=== PATIENT | male | born 1985 | race Caucasian/White ===

== ENCOUNTER 2019-06-17 04:24 | Observation (INO) ==
[2019-06-17] MEDS ORDERED: Ketorolac 30 MG/ML VIAL IVP PRN ×2 (08:21→16:54)
[2019-06-17] MEDS ORDERED: Naloxone 0.4 MG/ML INJ IVP PRN ×2 (08:21→16:54)
[2019-06-17] MEDS ORDERED: Ondansetron 4 MG/2 ML VIAL IVP PRN ×2 (08:24→16:54)
[2019-06-17] MEDS ORDERED: 0.9 % Sodium Chloride 1,000 ML IVC SCH ×2 (08:30→16:54)
--- NOTE | 2019-06-17 09:09 | Internal Med History&Physical ---
Date of Encounter: 06/17/19 Time of Encounter: 09:01 Internal Medicine - H&P: HPI History of present illness: Mr. Hernandez is a 33 year old male presents as a transfer from [facility] [place] for nephrolithiasis and hydronephrosis. He has history of kidney stones, hypertension pre-diabetes on metformin, and tobacco abuse. Patient presented for right flank pain. At [facility] [place], WBC was 11.5k, BMP was relatively unremarkable creatinine was 1.19 which is within normal limts per their lab and GRF >60. Urinalysis showed trace protein and large blood. CT abdomen/pelvis without contrast showed 7 mm right UPJ calculus causing moderate to marked hydronphrosis. He complained of testicular pain and urinary retention, also with nausea. He was given Keflex and normal saline. Past Med Surg Social Fam HX - Past Medical History Medical history: hypertension, kidney stones Additional medical history: pre-diabetic Psychiatric history: no psych history - Past Surgical History Surgical History: no surgical history - Social History Smoking Status: Current every day smoker Packs per day: 1 Smokeless Tobacco Status: No Alcohol use: occasionally Drug use: none - Family History Father Hx Family Cardiac Disorders: Yes (HTN, SC) Hx Family Endocrine Disorder: Yes (DM) Internal Medicine - H&P: Meds 3 Allergy/AdvReac Type Severity Reaction Status Date / Time No Known Allergies Allergy Verified 06/17/19 06:33 All Systems PM: A 10-system review of systems was performed and is negative for pertinent findings except as documented above in the HPI. - Constitutional Constitutional: no chills, no fever(s), no night sweats - EENT Eyes: no change in vision, no discharge, no pain, no photophobia Ears: no ear discharge, no ear pain, no tinnitus Nose, mouth and throat: no dysphagia, no nasal discharge, no neck pain, no sore throat - Cardiovascular Cardiovascular ROS IM: no chest pain, no diaphoresis, no dyspnea, no lightheadedness, no palpitations, no syncope - Respiratory Respiratory: no cough, no dyspnea, no wheezing, no excessive phlegm production - Gastrointestinal Gastrointestinal: nausea, no abdominal pain, no diarrhea, no hematemesis, no hematochezia, no melena, no vomiting - Genitourinary Genitourinary ROS male: flank pain, no genital pain, no scrotal swelling, no testicular mass Additional comments: inguinal radiating to testicle, no longer present. - Musculoskeletal Musculoskeletal ROS IM: no numbness, no tingling - Integumentary Integumentary IM: no rash, no unusual bruising - Neurological Neurological ROS: no confusion, no convulsions, no focal weakness, no numbness, no tingling, no tremor(s) - Hematologic/Lymphatic Hematologic/Lymphatic: no easy bruising - Constitutional Vitals: Temp Pulse Resp BP Pulse Ox 97.8 F 75 16 136/79 97 06/17/19 06:58 06/17/19 06:58 06/17/19 06:58 06/17/19 06:58 06/17/19 06:58 General appearance: Present: A&O X 3 Exam: . - Head Head exam: Present: atraumatic, normocephalic - Eye Eye exam: Present: PERRL, conjuntiva pink, sclera anicteric Pupils: Present: PERRL - Neck Neck exam general surgery: Present: supple, trachea midline. Absent: lymphadenopathy - Respiratory Respiratory exam: Present: CTAB. Absent: accessory muscle use, rales, rhonchi, wheezes - Cardiovascular Cardiovascular exam: Present: RRR, +S1, +S2. Absent: diastolic murmur, gallop, rubs, systolic murmur - GI/Abdominal GI/Abdominal exam: Present: normal bowel sounds, soft, no peritoneal signs. Absent: distended, tenderness - exam: Present: circumcision, normal inspection. Absent: scrotal swelling, testicular tenderness External exam: Absent: ecchymosis, erythema, lesions - Extremities Exam Extremities exam: Present: warm, radial pulses palpable and symmetrical. Absent: calf tenderness, cyanotic, pedal edema - Neurological Exam Neurological exam: Present: CN II-XII intact, oriented X3, no focal deficits. Absent: pronater drift, facial droop, speech deficit - Skin Skin exam: Present: dry, intact - Assessment and Plan (1) Right kidney stone Current Visit: Yes Status: Acute Assessment and plan: 7 mm UPJ stone causing moderate to marked hydronephrosis. Patient currently in no acute distress. No signs of kidney injury. - Urology consulted, recommendations appreciated - NPO - IV fluids - Oxycodone, Zofran, Toradol prn pain and nausea. (2) Hydronephrosis Current Visit: Yes Status: Acute Assessment and plan: plan as above. Qualifiers: Hydronephrosis type: with renal calculous obstruction Qualified Code(s): N13.2 - Hydronephrosis with renal and ureteral calculous obstruction (3) Hypertension Current Visit: Yes Status: Acute Assessment and plan: Resume home medications once med rec complete, Hydralazine IV prn. Qualifiers: Hypertension type: essential hypertension Qualified Code(s): I10 - Essential (primary) hypertension (4) Pre-diabetes Current Visit: Yes Status: Acute Assessment and plan: Hold metformin, ISS as needed (5) Tobacco abuse Current Visit: Yes Status: Acute Assessment and plan: Nicotine patch if needed (6) DVT prophylaxis Current Visit: Yes Status: Acute Assessment and plan: heparin SQ - Time Spent With Patient Total time spent is greater than 50% in coordination of care (as documented) at patient's floor/unit and/or counseling patient:
[2019-06-17] MEDS ORDERED: Nicotine 14 MG PATCH.TD24 TD PRN ×2 (09:25→16:54)
[2019-06-17 11:38] LABS: Basophils % 0.4 %; Eosinophils # 0.2 K/mcL (0.0-0.6); Eosinophils % 2.6 %; Hematocrit 39.1 % (37.5-50.1); Hemoglobin 12.6 g/dL (12.9-16.9); Immature Granulocytes % 0.2 % (0-4); Lymphocytes % 22.3 %; Mean Corpuscular HGB Conc 32.2 g/dL (31.6-35.5); Mean Corpuscular Hemoglobin 28.8 pg (28.0-33.3); Mean Corpuscular Volume 89.5 fL (83.0-100.0); Mean Platelet Volume 10.5 fL (9.4-12.4); Monocytes # 0.8 K/mcL (0.0-1.3); Monocytes % 8.6 %; Neutrophils # 5.9 K/mcL (1.6-8.9); Platelet Count 219 K/mcL (140-400); Red Blood Count 4.37 M/mcL (4.19-5.50); Red Cell Distribution Width 13.4 % (11.5-14.5); Segmented Neutrophils % 65.9 %
[2019-06-17 11:51] LABS: Prothrombin Time 11.9 Seconds (9.4-12.1)
[2019-06-17 11:56] LABS: BUN/Creatinine Ratio 22 (6-26); Blood Urea Nitrogen 18 mg/dL (6-20); Calcium 9.3 mg/dL (8.6-10.3); Carbon Dioxide 25 mEq/L (23-29); Chloride 107 mEq/L (98-107); Glucose 90 mg/dL (70-105); Osmolality,Calculated 293 (280-300); Potassium 4.5 mEq/L (3.5-5.1); Sodium 141 mEq/L (136-145); eGFR For African Americans > 60 (> 60); eGFR For Non-African Americans > 60 (> 60)
--- NOTE | 2019-06-17 14:06 | Anesthesia Evaluation PreOp ---
Date of Encounter: 06/17/19 Time of Encounter: 14:04 - Past History Planned Operation: Retrograde Pyelopgram w/Stent Cardiac History: HTN Pulmonary History: Smoker (1ppd x 15yrs), Asthma Other Medical History: Renal (admitted with Nephrolithiasis/Nephrosis from OSH 06/17/2019), Diabetes Type II (Pre-DM on Metformin) Anesthesia History: Past Anesthesia (NO prior GA), MH (NO FamHx of ) Alcohol Use: occasionally Drug use: none Medications and Allergies Meloxicam [Mobic] 7.5 mg PO BID 06/17/19 [History] Metformin HCl [Fortamet] 500 mg PO DAILY 06/17/19 [History] amLODIPine [Norvasc] 10 mg PO DAILY 06/17/19 [History] Allergy/AdvReac Type Severity Reaction Status Date / Time No Known Allergies Allergy Verified 06/17/19 06:33 - Meds/Allergy Pre-op Review Medications Reviewed: Yes Allergies Reviewed: Yes Beta Blockers on Current Med List: No Anesthesia Results - Labs 06/17/19 11:10 06/17/19 11:10 Laboratory Tests 06/17/19 06/17/19 11:10 11:10 INR 1.0 Est GFR (Non-Af Amer) > 60 n - Imaging Additional studies: Nuclear Stress 07/2018 Impression: Perfusion imaging was negative for ischemia or infarct. Exercise ECG is negative for ischemia. Patient described 4-5/10 chest pain at peak stress. The patient demonstrated a hypertensive blood pressure response. Gated EF = 66%. Anesthesia Exam Vital Signs Temp Pulse Resp BP Pulse Ox 06/17/19 11:17 98.0 F 70 16 143/76 97 06/17/19 06:58 97.8 F 75 16 136/79 97 Intake and Output 06/16/19 06/17/19 06/17/19 23:59 07:59 15:59 Other: Weight 112.8 kg Blood Glucose* 103 82 Patient Weight 06/17/19 23:59 Weight 112.8 kg Height: 5'11" Weight: 248# BMI = 35 NPO (# of Hours): MNOc - HEENT Pupil (Motor): Pupils equal, EOMI Mallampati: III Teeth: Normal Oral Opening: Greater than 3 - ELECTRONIC COMPONENT PROCESSOR LOC: Oriented ELECTRONIC COMPONENT PROCESSOR Motor: Normal RUE, Normal LUE, Normal RLE, Normal LLE, Normal Face ELECTRONIC COMPONENT PROCESSOR Sensory: Normal: RUE, LUE, RLE, LLE, Face - Cardiac Rhythm: Regular Murmur: None - Pulmonary Breath Sounds: bilateral Clear Respiratory Effort: Symmetrical Anesthesia Assess/Plan ASA Score: 3 (Obesity, DM, Smoker) Level of consciousness: Cooperative, Oriented, Tranquil Anesthetic Plan: General Monitoring Plan: Standard Monitors Recovery Plan: PACU Anes Supervising Prov Stmt: Pt seen/evaluated, R&B Discussed questions answered and consent obtained. Christian Murillo MD
[2019-06-17] MEDS ORDERED: Lidocaine -MPF 2% 2 ML VIAL ONE (14:21)
[2019-06-17] MEDS ORDERED: *HR* Propofol 200 MG/20 ML VIAL IVP ONE (14:21)
[2019-06-17] MEDS ORDERED: Isovue-300 50 ML VIAL ONE (14:55)
[2019-06-17] MEDS ORDERED: Acetaminophen IV 1,000 MG/100 ML INFUS..BTL ONE (15:16)
[2019-06-17] MEDS ORDERED: Famotidine 20 MG/2 ML VIAL ONE (15:16)
--- NOTE | 2019-06-17 15:18 | Urology - Consult Note ---
Date of Encounter: 06/17/19 Time of Encounter: 15:16 - Assessment and Plan (1) Hydronephrosis Current Visit: Yes Status: Acute Assessment and plan: Transferred due to poorly controlled pain from 7 mm obstructing right ureteropelvic junction calculus. Patient's pain has been intermittent. He does not have evidence of urinary tract infection. Is not septic. Discussed option for management. Plan: Urgent urinary diversion by stent placement today. Patient okay for discharge to home post placement of stent. My office will arrange outpatient follow-up for definitive management of stone. Hospitalist acceptance and management of this patient is greatly appreciated. Qualifiers: Hydronephrosis type: unspecified Qualified Code(s): N13.30 - Unspecified hydronephrosis (2) Right ureteral calculus Current Visit: Yes Status: Acute Assessment and plan: 7 mm right proximal ureteral calculus. Discussed options for definitive management of stone. Plan: My office will arrange for staged outpatient address of calculus via [facility]. (3) Nephrolithiasis Current Visit: Yes Status: Acute Assessment and plan: Patient with history of prior stones. Given recurrent stone disease prev entative evaluation is indicated. Plan: My office will arrange for outpatient follow-up for metabolic evaluation and stone prevention. Urology CN:HPI Consult date: 06/17/19 Reason for consult Urology: Hydronephrosis Requesting physician: Aisha Bettencourt History of present illness: Mr. Hernandez is a 33 year old male presents as a transfer from [place] for nephrolithiasis and hydronephrosis. He has history of kidney stones, hypertension pre-diabetes on metformin, and tobacco abuse. Patient presented for right flank pain. At [facility] [place], WBC was 11.5k, BMP was relatively unremarkable creatinine was 1.19 which is within normal limts per their lab and GRF >60. Urinalysis showed trace protein and large blood. CT abdomen/pelvis without contrast showed 7 mm right UPJ calculus causing moderate to marked hydronphrosis. He complained of testicular pain and urinary retention, also with nausea. He was given Keflex and normal saline. Patient reports prior history of spontaneous stone passages without prior urologic interventions. Past Med Surg Social Fam HX - Past Medical History Medical history: hypertension, kidney stones Additional medical history: pre-diabetic Psychiatric history: no psych history - Past Surgical History Surgical History: no surgical history - Social History Smoking Status: Current every day smoker Packs per day: 1 Smokeless Tobacco Status: No Alcohol use: occasionally Drug use: none - Family History Father Hx Family Cardiac Disorders: Yes (HTN, PR) Hx Family Endocrine Disorder: Yes (DM) Medications and Allergies Meloxicam [Mobic] 7.5 mg PO BID 06/17/19 [History] Metformin HCl [Fortamet] 500 mg PO DAILY 06/17/19 [History] amLODIPine [Norvasc] 10 mg PO DAILY 06/17/19 [History] Allergy/AdvReac Type Severity Reaction Status Date / Time No Known Allergies Allergy Verified 06/17/19 06:33 Review of Systems - Constitutional no chills, no fever(s) - EENT Nose, mouth and throat: no dizziness, no headache(s) - Cardiovascular no chest pain, no diaphoresis - Respiratory no cough, no dyspnea - Gastrointestinal abdominal pain, no fecal incontinence - Genitourinary flank pain, no dysuria - Musculoskeletal back pain, no muscle weakness - Integumentary no erythema, no rash - Neurological no confusion, no sensory deficit - Psychiatric no anxiety, no confusion - Hematologic/Lymphatic no easy bleeding, no easy bruising - Allergic/Immunologic no throat swelling, no wheezing Exam Initial Vital Signs Temp Pulse Resp BP Pulse Ox 97.8 F 75 16 136/79 97 06/17/19 06:58 06/17/19 06:58 06/17/19 06:58 06/17/19 06:58 06/17/19 06:58 - General physical appearance Present: well nourished, no distress - Eyes Present: normal ocular movement. Absent: icteric - ENT Present: normal nares, normal mucosa - Neck Present: trachea midline - Respiratory Present: normal respiratory effort - Abdomen Abdomen: Present: soft, non tender - Integumentary Present: no rash, no growths - Neurologic Present: normal coordination. Absent: disoriented, confused - Musculoskeletal Present: normal gait Urology Results - Labs 06/17/19 11:10 06/17/19 11:10 Abnormal lab results Hgb 12.6 g/dL (12.9-16.9) L 06/17/19 11:10 Diabetes panel 06/17/19 Range/Units 11:10 Sodium 141 (136-145) mEq/L Potassium 4.5 (3.5-5.1) mEq/L Chloride 107 (98-107) mEq/L Carbon Dioxide 25 (23-29) mEq/L BUN 18 (6-20) mg/dL Creatinine 0.83 (0.70-1.30) mg/dL Glucose 90 (70-105) mg/dL Calcium 9.3 (8.6-10.3) mg/dL Calcium panel 06/17/19 Range/Units 11:10 Calcium 9.3 (8.6-10.3) mg/dL Pituitary panel 06/17/19 Range/Units 11:10 Sodium 141 (136-145) mEq/L Potassium 4.5 (3.5-5.1) mEq/L Chloride 107 (98-107) mEq/L Carbon Dioxide 25 (23-29) mEq/L BUN 18 (6-20) mg/dL Creatinine 0.83 (0.70-1.30) mg/dL Glucose 90 (70-105) mg/dL Calcium 9.3 (8.6-10.3) mg/dL Adrenal panel 06/17/19 Range/Units 11:10 Sodium 141 (136-145) mEq/L Potassium 4.5 (3.5-5.1) mEq/L Chloride 107 (98-107) mEq/L Carbon Dioxide 25 (23-29) mEq/L BUN 18 (6-20) mg/dL Creatinine 0.83 (0.70-1.30) mg/dL Glucose 90 (70-105) mg/dL Calcium 9.3 (8.6-10.3) mg/dL All other labs normal. - Imaging CT scan - abdomen: image reviewed CT scan - pelvis: image reviewed (Outside CT images reviewed via disc. 7 mm obstructing right UPJ stone with hydronephrosis.) Consult Discharge Plan - Plan Referrals: Chelsie Nunez, SAFETY GROOVING MACHINE OPERATOR [Primary Care Provider] -
[2019-06-17] MEDS ORDERED: *HR* Midazolam HCl 2 MG/2 ML VIAL ONE (15:21)
[2019-06-17] MEDS ORDERED: *HR* FentaNYL (PF) 100 MCG/2 ML VIAL ONE (15:21)
[2019-06-17] MEDS ORDERED: *HR* HYDROMORPHONE 2 MG/ML VIAL ONE (15:52)
[2019-06-17] MEDS ORDERED: *HR* Magnesium Sulfate 1 GM/2 ML VIAL ONE (15:52)
--- NOTE | 2019-06-17 16:06 | Operative Note ---
Date of procedure: 06/17/19 Pre-op diagnosis: Right hydronephrosis Post-op diagnosis: same Procedure: Cystoscopy, right retrograde ureteral pyelography with intraoperative interpretation of radiographic images in real time by surgeon to facilitate procedure, right double-J stent placement Implants: 6 x 28 right double-J stent Complications: None Anesthesia: GETA Surgeon: Ronal Mitchell Was there an health education assistant present: No Estimated blood loss (cc): 2 Specimen: None Condition: stable Disposition: PACU Procedure in Detail: The patient was brought to the operating theater placed on the table in supine position. The patient identified by name, date of and administered a general anesthetic. The patient was repositioned in dorsal lithotomy then prepped and draped in the normal sterile fashion. The cystoscope could not fit into the urethral meatus due to moderate but not obstructive narrowing/stenosis. This required manual dilation of the urethral meatus with insertion of hemostats. Once the meatus had been dilated the scope was accepted. On cystourethroscopy no mucosal abnormalities were identified. An open-ended catheter was placed the tip of the right ureteral orifice and with gentle injection of contrast a right retrograde ureteropyelogram was performed. Intraoperative interpretation of radiographic images in real time by surgeon to facilitate procedure revealed normal distal and mid ureter. In the proximal ureter was a second size filling defect with hydronephrosis above this level consistent with stone seen on previous CT. Based on this intraoperative interpretation, urinary diversion by stent placement was indicated. A Glidewire was advanced into the ureter above the stone and into the upper pole collecting system. Over the Glidewire a 6 x 28 double-J stent was advanced. Once the stent was felt in good position the Glidewire was removed. The stent was confirmed in good position approximately distally with fluoroscopy. This ended the operative procedure.
[2019-06-17] MEDS ORDERED: Dexamethasone 4 MG/ML VIAL ONE (16:19)
[2019-06-17] MEDS ORDERED: Ondansetron 4 MG/2 ML VIAL ONE (16:19)
[2019-06-17] MEDS ORDERED: Ringers Solution, Lactated 1,000 ML ONE (16:27)
[2019-06-17 17:15] VITALS: BP 142/90
--- NOTE | 2019-06-17 17:40 | Discharge Summary ---
- NOTES TO OUTPATIENT PROVIDER Notes to Outpatient Provider: To be followed-up with Urology post-stent placement. Date of Encounter: 06/17/19 Time of Encounter: 17:37 - Discharge Diagnosis (1) Right kidney stone Priority: Primary Status: Acute (2) Hydronephrosis Priority: Secondary Status: Acute Qualifiers: Hydronephrosis type: unspecified Qualified Code(s): N13.30 - Unspecified hydronephrosis (3) Hypertension Priority: Secondary Status: Acute Qualifiers: Hypertension type: essential hypertension Qualified Code(s): I10 - Essential (primary) hypertension (4) Pre-diabetes Priority: Secondary Status: Acute (5) Tobacco abuse Priority: Secondary Status: Acute (6) DVT prophylaxis Priority: Secondary Status: Acute Hospital course: Mr. Hernandez is a 33 year old male presents as a transfer from [facility] ED for nephrolithiasis and hydronephrosis. He has history of kidney stones, hypertension pre-diabetes on metformin, and tobacco abuse. Patient presented for right flank pain. At [facility] [place], WBC was 11.5k, BMP was relatively unremarkable creatinine was 1.19 which is within normal limts per their lab and GRF >60. Urinalysis showed trace protein and large blood. CT abdomen/pelvis without contrast showed 7 mm right UPJ calculus causing moderate to marked hydronphrosis. He complained of testicular pain and urinary retention, also with nausea. He was given Keflex and normal saline. Patient transferred here for further Urology workup. Urology consulted and patient underwent stent placement without complication. He tolerated procedure well and Urology stated he is okay for discharge. He was discharged with Cipro, Percocet, and oxybutinin in stable condition. - Time Spent with Patient Total time spent providing and/or coordinating discharge services: - Discharge Medications Prescriptions: New Ciprofloxacin [Cipro] 500 mg PO BID 3 Days #6 tablet Oxybutynin [Ditropan] 5 mg PO Q8HR PRN 7 Days #20 tablet PRN Reason: Bladder frequency due to stent Tamsulosin [Flomax] 0.4 mg PO DAILY 10 Days #10 cap.er.24h Oxycodone HCl/Acetaminophen [Percocet 5-325 mg Tablet] 1 each PO Q4-6H PRN 3 Days #10 tablet PRN Reason: pain Nicotine Patch [Nicoderm] 14 mg TD DAILY PRN #30 patch.td24 PRN Reason: Nicotine Cravings Continued Metformin HCl [Fortamet] 500 mg PO DAILY Meloxicam [Mobic] 7.5 mg PO BID amLODIPine [Norvasc] 10 mg PO DAILY Home Medications: Ciprofloxacin [Cipro] 500 mg PO BID 3 Days #6 tablet 06/17/19 [Rx] Meloxicam [Mobic] 7.5 mg PO BID 06/17/19 [History] Metformin HCl [Fortamet] 500 mg PO DAILY 06/17/19 [History] Nicotine Patch [Nicoderm] 14 mg TD DAILY PRN #30 patch.td24 06/17/19 [Rx] Oxybutynin [Ditropan] 5 mg PO Q8HR PRN 7 Days #20 tablet 06/17/19 [Rx] Oxycodone HCl/Acetaminophen [Percocet 5-325 mg Tablet] 1 each PO Q4-6H PRN 3 Days #10 tablet 06/17/19 [Rx] Tamsulosin [Flomax] 0.4 mg PO DAILY 10 Days #10 cap.er.24h 06/17/19 [Rx] amLODIPine [Norvasc] 10 mg PO DAILY 06/17/19 [History] Allergies/Adverse Reactions: Allergy/AdvReac Type Severity Reaction Status Date / Time No Known Allergies Allergy Verified 06/17/19 06:33 Date of admission: 06/17/19 06:06 Primary care physician: Chelsie Nunez CNP Consults: 06/17/19 08:22 Consult to Urology [CONS] Routine Consulting Provider: [facility] [place] Reason for Consult: hydronephrosis, stone Call Completed: Yes Discharging clinician: Aisha Bettencourt - Constitutional Vitals: Temp Pulse Resp BP Pulse Ox 97.6 F 83 20 142/90 99 06/17/19 17:13 06/17/19 17:13 06/17/19 17:13 06/17/19 17:13 06/17/19 17:13 General appearance: Present: A&O X 3, no acute distress Exam: . - Head Head exam: Present: atraumatic, normocephalic - Eye Eye exam: Present: PERRL, conjuntiva pink, sclera anicteric Pupils: Present: PERRL - Neck Neck exam general surgery: Present: supple, trachea midline. Absent: lymphadenopathy - Respiratory Respiratory exam: Present: CTAB. Absent: accessory muscle use, rales, rhonchi, wheezes - Cardiovascular Cardiovascular exam: Present: RRR, +S1, +S2. Absent: diastolic murmur, gallop, rubs, systolic murmur - GI/Abdominal GI/Abdominal exam: Present: normal bowel sounds, soft, no peritoneal signs. Absent: distended, tenderness - Extremities Exam Extremities exam: Present: warm, radial pulses palpable and symmetrical. Absent: calf tenderness, cyanotic, pedal edema - Neurological Exam Neurological exam: Present: CN II-XII intact, oriented X3, no focal deficits. Absent: pronater drift, facial droop, speech deficit - Skin Skin exam: Present: dry, intact - Patient Status Disposition: Home, Self-Care Condition: Good Functional capacity at discharge: independent ambulation Overall status at discharge: patient is back to baseline - Discharge Instructions Follow Up With: Chelsie Nunez, SENIOR ADMINISTRATIVE ASSOCIATE [Primary Care Provider] - - Diet and Activity Activity: increase activity as tolerated Diet: advance to your usual diet
[2019-06-17] MEDS ORDERED: *HR* Heparin 5,000 UNIT/ML VIAL SQ SCH ×2 (18:00)
--- NOTE | 2019-06-17 19:22 | Anesthesia Evaluation Post Op ---
Date of Encounter: 06/17/19 Time of Encounter: 16:35 - Vital Signs Vital Signs: Vital Signs/O2 Sat/Glucose, Most Current Temp Pulse Resp BP Pulse Ox 06/17/19 16:40 99 F 85 16 149/88 98 06/17/19 16:30 87 14 133/90 97 06/17/19 16:20 61 16 128/63 99 06/17/19 16:10 98.7 F 73 16 108/67 93 - Lungs Lungs: Clear Ascult./Percussion - Airway Airway: Non-obstructed - Cardiovascular Regular Rate, Baseline Rhythm - Mental Status Mental Status: Alert & Oriented, Answers Appropriately - Pain Pain Scale: 0 Pain Scale used: Numeric (1 - 10) - Nausea Vomiting Nausea Vomiting: Not Present - Hydration Hydration: Ice chips, Able to void - Discharge PostOp Status: Transfer Patient to floor Anes Supervising Prov Stmt: Pt seen/evaluated, VSS And has met criteria for discharge to floor. - MD Chidi
== END 2019-06-17 19:01 | disposition home or self-care (01) ==
LOC: 3BNU
PROVIDERS: ADMIT Internal Medicine; ATTEND Internal Medicine